=== PATIENT | female | born 1975 | race Caucasian/White ===

== ENCOUNTER 2024-08-01 19:51 | Emergency (ER) | payer SELFPAY ==
[~2024-08-01] VITALS: Ht 160 cm; Wt 119.1 kg
[2024-08-01 20:05] VITALS: O2SAT 95
[2024-08-01 21:24] LABS: BASOPHILS % 0.8 % (0.0-2.0); EOSINOPHILS % 6.8 % (0.0-5.0); HEMATOCRIT. 35.5 % (36.0-48.0); HEMOGLOBIN. 10.7 g/dL (12.0-16.0); LYMPHOCYTES % 23.7 % (20.0-50.0); MEAN CORPUSCULAR HEMOGLOBIN 19.8 pg (28.0-32.0); MEAN CORPUSCULAR VOLUME 65.9 fL (81.0-99.0); MEAN PLATELET VOLUME 9.7 fl (7.4-10.4); MONOCYTES % 5.5 % (2.0-8.0); NEUTROPHILS % 63.2 % (40.0-76.0); PLATELET 302 x1000/uL (130-400); RED BLOOD CELL COUNT 5.38 mill/uL (4.2-5.4); RED CELL DISTRIBUTION WIDTH 20.8 % (11.6-14.6); WHITE BLOOD COUNT 14.6 x1000/uL (4.5-11.0)
[2024-08-01 21:28] LABS: DIFFERENTIAL COMMENT 1
[2024-08-01 21:29] LABS: ADD RBC MORPHOLOGY YES
[2024-08-01 21:30] LABS: CHLORIDE 104 mEq/L (98-107); POTASSIUM 3.6 mEq/L (3.5-5.1); SODIUM 140 mEq/L (136-145)
[2024-08-01 21:31] LABS: CALCIUM 9.7 mg/dL (8.7-10.4); CARBON DIOXIDE 28 mEq/L (21-32)
[2024-08-01 21:36] LABS: CREATININE 0.9 mg/dL (0.6-1.0); GLUCOSE 187 mg/dL (70-105); UREA NITROGEN BLOOD 17 mg/dL (9-23)
[2024-08-01 21:38] LABS: TROPONIN I HIGH SENSITIVITY < 4 ng/L (3.0-34)
[2024-08-01 21:52] LABS: ANISOCYTOSIS 2+; PLATELET ESTIMATE NORMAL
[2024-08-01 21:53] LABS: HYPOCHROMASIA 2+; MICROCYTOSIS 3+
[2024-08-01 23:36] VITALS: PULSE 68; RESP 16
[2024-08-01] MEDS: IPRATROPIUM/ALBUTEROL 0.5-3(2.5)MG/3ML NEB HHN NR (23:36)
[2024-08-02] MEDS: METFORMIN HCL 850MG TABLET PO NR (01:01)
[2024-08-02] MEDS: PREDNISONE 20MG TABLET PO NR (01:01)
[2024-08-02] MEDS ORDERED: INSU100I28 SQ (01:05)
[2024-08-02] MEDS ORDERED: ALBU18HF2 IH (01:05)
[2024-08-02] MEDS ORDERED: BECL10.62 INH (01:05)
[2024-08-02] MEDS ORDERED: NPH,100V SQ (01:05)
[2024-08-02 01:25] VITALS: BP 119/70; PULSE 93; RESP 20; TEMP 36.72516; O2SAT 95
== END 2024-08-02 01:24 | disposition home or self-care (01) ==
LOC: ER 19:51
DX: J98.01 Acute bronchospasm (principal); J44.89 Other specified chronic obstructive pulmonary disease; E11.65 Type 2 diabetes mellitus with hyperglycemia; E66.01 Morbid (severe) obesity due to excess calories; Z68.42 Body mass index [BMI] 45.0-49.9, adult; Z91.148 Patient's other noncompliance with medication regimen for other reason; Z79.51 Long term (current) use of inhaled steroids; Z79.52 Long term (current) use of systemic steroids
CPT/HCPCS: 80048; 85025; 84484; 36415; 71045; 93005; 99285; 94640; Z7610 ×3; J7512

== ENCOUNTER 2024-09-14 14:52 | Emergency (ER) | payer MEDICAID ==
[~2024-09-14] VITALS: Ht 160 cm; Wt 121.0 kg
[~2024-09-14 14:52] MED LIST: ALBU18HF2 IH; BECL10.62 INH; INSU100I28 SQ; NPH,100V SQ
[2024-09-14 15:06] VITALS: TEMP 36.9; O2SAT 97
[2024-09-14] MEDS ORDERED: CLIN-194 MT (17:48)
[2024-09-14] MEDS: MORPHINE SULFATE 4 MG/ML INJ (FOR IV/IM USE) IM ONE (18:07)
[2024-09-14 19:50] VITALS: BP 122/68; PULSE 87; RESP 19; O2SAT 98
== END 2024-09-14 19:51 | disposition home or self-care (01) ==
LOC: ER 15:01
DX: L02.211 Cutaneous abscess of abdominal wall (principal); E11.9 Type 2 diabetes mellitus without complications; J44.89 Other specified chronic obstructive pulmonary disease; Z79.4 Long term (current) use of insulin; Z79.51 Long term (current) use of inhaled steroids
CPT/HCPCS: 10060; 96372; 99283; J2270; Z7610 ×2